=== PATIENT | female | born 2000 | race Caucasian/White ===

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

== ENCOUNTER 2019-01-30 15:34 | Emergency (ER) | payer MEDICAID ==
[~2019-01-30] VITALS: Ht 165.1 cm; Wt 101.6 kg
[2019-01-30 16:12] VITALS: Ht 165.1 cm; Wt 101.6 kg
[2019-01-30 17:37] VITALS: BP 119/77
== END 2019-01-30 17:37 | disposition home or self-care (01) ==
LOC: ED 15:34
DX: G51.0 Bell's palsy (principal)
CPT/HCPCS: J1885; J7512